=== PATIENT | male | born 1980 | race Caucasian/White ===

== ENCOUNTER 2018-06-12 08:54 | Day surgery (SDC) | payer OTHER ==
[2018-06-12] MEDS ORDERED: FENTANYL PF 100MCG/2ML VIAL IV ONE (08:55)
[2018-06-12] MEDS ORDERED: MIDAZOLAM HCL 2MG/2ML VIAL IV ONE (08:55)
[2018-06-12] MEDS ORDERED: LIDOCAINE 2% MDV (20MG/ML) 20ML VIAL IV ONE (08:55)
[2018-06-12] MEDS ORDERED: PROPOFOL 10 MG/ML VIAL IV ONE (08:55)
--- NOTE | 2018-06-13 13:20 | Operative Note ---
DATE OF SURGERY: 06/12/2018 OPERATION: ESOPHAGOGASTRODUODENOSCOPY with multiple biopsies. INDICATION: Recent episodes of dyspepsia with epigastric and chest pain. Clinically, the patient is improved following emergency room visit where cardiac cause for the above was ruled out. Upper endoscopy was performed at this time for evaluation. He denies any regular pyrosis. There is no prior history of ulcer disease. He is avoiding anti-inflammatory medications. ANESTHESIA: Intravenous sedation was administered by the department of anesthesiology and included Diprivan and fentanyl titrated to effect. PROCEDURE: Following informed consent from this alert individual, including a discussion of the risks and benefits of the procedure and an opportunity for the patient to ask questions, the patient was in the left lateral decubitus position. The Olympus [id number] video endoscope was inserted into the esophagus without resistance. The proximal esophagus had a normal appearance with normal folds and distensibility. The distal esophagus demonstrated a somewhat ringed appearance with some longitudinal shallow furrows noted as well. The luminal diameter seemed to be unremarkable, however. Multiple biopsies from the esophagus were obtained to rule out the possibility of eosinophilic esophagitis. The patient had not been complaining of any dysphagia. The squamocolumnar junction was smooth, well defined, and approximated the diaphragmatic hiatus. The structure was traversed and the stomach was entered. The gastric fundus and pars media had a normal appearance with normal folds and distensibility. The antrum evaluated circumferentially demonstrated some focal erythema in the prepyloric region. Biopsies from the stomach were obtained. The pylorus itself was patent. The duodenal bulb, sweep and descending duodenum were examined in a serial fashion and found to be normal. The endoscope was then withdrawn back into the body of the stomach. Retroflexion accomplished following air insufflation failed to demonstrate any other abnormalities. The endoscope was straightened and withdrawn back through the esophagus and removed from the patient. The patient tolerated the procedure well and was returned to the recovery area in stable condition. IMPRESSION: 1. Possible eosinophilic esophagitis involving the distal esophagus as described above with somewhat ringed and furrowed mucosa although the luminal diameter did not seem to be compromised. Biopsies were taken. 2. Prepyloric antral gastritis. Biopsies taken. RECOMMENDATIONS: Further recommendations will be forthcoming pending results of biopsies obtained today. The patient will be following up with his primary care physicians as well. CC: Dr. Yonatan CASH
--- NOTE | 2018-06-13 13:30 | Operative Note ---
DATE OF SURGERY: 06/12/2018 OPERATION: COLONOSCOPY to the neoterminal ileum with biopsy. INDICATION: Prior history of Crohn disease. Patient with previous ileal disease and remote ileocecal resection with anastomosis. He returns at this time after 4 years for surveillance. Clinically he is doing well from a Crohn disease standpoint. He is continuing with mesalamine therapy (Pentasa) 500 mg 4 capsules 2 times daily. ANESTHESIA: Intravenous sedation was administered by the department of anesthesiology and included Diprivan titrated to effect. PROCEDURE: Following informed consent from this alert individual including a discussion of the risks and benefits of the procedure and an opportunity for the patient to ask questions, the patient was in the left lateral decubitus position. A digital rectal examination was performed. No abnormalities were noted. Following this, the Olympus [id number] video colonoscope was inserted into the rectum without resistance. The rectal mucosa had a normal appearance with normal folds and distensibility. The colonoscope was advanced up to the sigmoid colon where a few diverticula were noted. The descending colon had focal areas of erythema but without ulcerations or erosions seen. There was no stricturing or evidence of active inflammatory bowel disease. The colonoscope was then further advanced across a normal transverse colon down through the ascending colon to a very healthy appearing anastomosis with the small bowel. There were no anastomotic inflammatory changes noted. The terminal ileum was completely normal. As mentioned, the anastomotic site was normal as was the remaining right colon. The colonoscope was then further withdrawn back into the descending colon where biopsies were taken from areas of very mild focal erythema. There were no ulcerations or erosions seen. The rectum was endoscopically normal as was retroflexion within the rectum. The endoscope was then removed. The patient tolerated the procedure well. He was returned to the recovery area in stable condition. The colon preparation was good. IMPRESSION: 1. Very healthy appearing ileocolonic anastomosis and terminal ileum. 2. Normal right colon. 3. Mild focal erythema in the descending colon without ulcerations or erosions seen. Biopsies taken. 4. Mild sigmoid diverticulosis. RECOMMENDATIONS: The patient will continue on his current medical therapy. Further recommendations will be forthcoming pending results of biopsy obtained today. Followup will also be with primary care physician. As always, thank you for allowing me to participate in the care of your patient. CC: Dr. Yonatan CASH
== END 2018-06-12 11:25 | disposition home or self-care (01) ==
LOC: HOP 08:54
PROVIDERS: ATTEND Internal Medicine Gastroenterology
DX: Z12.11 Encounter for screening for malignant neoplasm of colon (principal); K57.30 Diverticulosis of large intestine without perforation or abscess without bleeding; Z98.890 Other specified postprocedural states; K50.90 Crohn's disease, unspecified, without complications; R10.13 Epigastric pain; R07.9 Chest pain, unspecified; K29.50 Unspecified chronic gastritis without bleeding; K20.8 Other esophagitis; K22.70 Barrett's esophagus without dysplasia
CPT/HCPCS: 45380; 43239; 00813; J3010

== ENCOUNTER 2019-08-13 10:04 | Day surgery (SDC) | payer OTHER ==
[2019-08-13] MEDS ORDERED: PROPOFOL 10 MG/ML VIAL IV ONE (10:05)
[2019-08-13] MEDS ORDERED: LIDOCAINE 2% MDV (20MG/ML) 20ML VIAL IV ONE (10:05)
--- NOTE | 2019-08-14 07:20 | Operative Note ---
DATE: 08/13/2019 OPERATION: ESOPHAGOGASTRODUODENOSCOPY with multiple biopsies. INDICATION: Previous endoscopy suggesting possible intestinal metaplasia at the squamocolumnar junction. The patient returns at this time for surveillance. He does complain of episodes of epigastric and right upper quadrant discomfort sometimes lasting up to 3 and 4 hours intermittently. Upper endoscopy is performed at this time for further evaluation. ANESTHESIA: Intravenous sedation was administered by the department of anesthesiology and included Diprivan titrated to effect. PROCEDURE: Following informed consent from this alert individual, including a discussion of the risks and benefits of the procedure and an opportunity for the patient to ask questions, the patient was in the left lateral decubitus position. The Olympus [id number] video endoscope was inserted into the esophagus without resistance. The proximal esophagus had a normal appearance with normal folds and distensibility. The mid esophagus likewise was free from changes. The squamocolumnar junction was evaluated and found to be slightly irregular without ulcerations, erosions, or raised areas noted. The stomach was entered. The gastric fundus and pars media had a normal appearance, with normal folds and distensibility. The antrum evaluated circumferentially demonstrated some edematous erythematous mucosa just in the prepyloric antrum. Biopsies from this site were taken. The pylorus itself was patent. The duodenal bulb, sweep and descending duodenum were examined in a serial fashion and found to be normal. The endoscope was then drawn back into the body of the stomach. Retroflexion accomplished following air insufflation failed to demonstrate any changes. The endoscope was then straightened and withdrawn back to the GE junction where multiple biopsies were taken. The endoscope was then withdrawn back through a normal mid and proximal esophagus and removed from the patient. He tolerated the procedure well and was returned to the recovery area in stable condition. IMPRESSION: 1. Variable Z line as noted above, biopsies taken. 2. Prepyloric antral gastritis, biopsies taken. RECOMMENDATION: Further recommendations will be forthcoming pending results of biopsies obtained today. I did recommend the patient have an ultrasound of his abdomen to evaluate his gallbladder, as this may be contributing to his symptom complex. He also states that the discomfort he notes with bloating and gas lasting 3-4 hours improves after the passage of stool. Again, further recommendations will be forthcoming pending biopsy and ultrasound results. Followup will also be with Dr. Yonatan Munoz. As always, thank you for allowing me to participate in the care of your patient. SHAILESH
== END 2019-08-13 11:55 | disposition home or self-care (01) ==
LOC: HOP 10:04
PROVIDERS: ATTEND Internal Medicine Gastroenterology
DX: Z09 Encounter for follow-up examination after completed treatment for conditions other than malignant neoplasm (principal); Z87.19 Personal history of other diseases of the digestive system; R10.11 Right upper quadrant pain; R10.13 Epigastric pain; K31.89 Other diseases of stomach and duodenum; K29.50 Unspecified chronic gastritis without bleeding; K21.0 Gastro-esophageal reflux disease with esophagitis; K50.90 Crohn's disease, unspecified, without complications; M10.9 Gout, unspecified